=== PATIENT | female | born 1965 | race African-American/Black ===

== ENCOUNTER 2017-11-19 07:52 | Emergency (ER) | payer MEDICARE, MEDICAID ==
[~2017-11-19] VITALS: Ht 157.5 cm; Wt 77.3 kg
[~2017-11-19 07:52] MED LIST: NYQUIL
[2017-11-19] MEDS ORDERED: IBUPROFEN 600 MG TABLET PO ONE (08:45)
[2017-11-19 08:57] LABS: BASOPHILS % (AUTO) 0.5 % (0.0-2.0); EOSINOPHILS % (AUTO) 1.4 % (1.0-6.0); HEMATOCRIT 38.9 % (36-46); HEMOGLOBIN 13.4 g/dL (12.0-16.0); LYMPHOCYTES # (AUTO) 1.1 K/uL (1.0-4.8); MEAN CORPUSCULAR HEMOGLOBIN 31.6 pg (26.0-34.0); MEAN CORPUSCULAR HGB CONC 34.4 G/dL (31.0-37.0); MEAN CORPUSCULAR VOLUME 92 fL (80-100); MONOCYTES # (AUTO) 0.3 K/uL (0.1-1.0); MONOCYTES % (AUTO) 8.1 % (2.0-9.0); NEUTROPHILS # (AUTO) 2.6 K/uL (1.8-7.7); PLATELET COUNT (AUTO) 220 K/uL (150-450); RED BLOOD CELL COUNT(AUTO) 4.24 MIL/uL (4.00-5.20); RED CELL DISTRIBUTION WIDTH 13.4 % (11.5-14.5)
[2017-11-19 09:07] LABS: ANION GAP 4 mmol/L (8-16); CALCIUM, TOTAL 8.6 mg/dL (8.8-10.5); CARBON DIOXIDE 32 mmol/L (22-29); CHLORIDE 104 mmol/L (98-107); CREATININE 0.75 mg/dL (0.60-1.30); GLOMERULAR FILTR. RATE CALC > 60 mL/min (>60); GLUCOSE,RANDOM 86 mg/dL (70-110); POTASSIUM 3.5 mmol/L (3.5-5.1); SODIUM SERUM 140 mmol/L (136-145); UREA NITROGEN, BLOOD 6 mg/dL (7-18)
[2017-11-19 10:05] LABS: ERYTHROCYTE SEDIMENTATION RATE 20 MM/HR (0-20)
[2017-11-19 10:09] VITALS: BP 131/70
== END 2017-11-19 11:00 | disposition home or self-care (01) ==
LOC: EMS 07:53
DX: M25.541 Pain in joints of right hand (principal)
CPT/HCPCS: 29125; 36415; 73140; 80048; 85025; 85651; 96372; 99285; J0690

== ENCOUNTER 2020-09-13 08:50 | Emergency (ER) | payer MEDICAID ==
[~2020-09-13] VITALS: Ht 160 cm; Wt 68.2 kg
[2020-09-13] MEDS ORDERED: SODIUM CHLORIDE 0.9% 1,000 ML IV ONE (10:00)
[2020-09-13] MEDS ORDERED: ONDANSETRON HCL 4 MG/2 ML VIAL IVP ONE (10:00)
[2020-09-13] MEDS ORDERED: KETOROLAC TROMETHAMINE 30 MG/ML VIAL IVP ONE (10:00)
[2020-09-13 10:05] LABS: BASOPHILS % (AUTO) 0.7 % (0.0-2.0); HEMOGLOBIN 12.7 g/dL (12.0-16.0); LYMPHOCYTES # (AUTO) 1.1 K/uL (1.0-4.8); LYMPHOCYTES % (AUTO) 35.1 % (22.0-44.0); MEAN CORPUSCULAR HEMOGLOBIN 29.6 pg (26.0-34.0); MEAN CORPUSCULAR HGB CONC 31.7 G/dL (31.0-37.0); MEAN CORPUSCULAR VOLUME 93 fL (80-100); MONOCYTES # (AUTO) 0.3 K/uL (0.1-1.0); MONOCYTES % (AUTO) 9.4 % (2.0-9.0); NEUTROPHILS # (AUTO) 1.6 K/uL (1.8-7.7); NEUTROPHILS % (AUTO) 53.8 % (40.0-70.0); PLATELET COUNT (AUTO) 206 K/uL (150-450); RED BLOOD CELL COUNT(AUTO) 4.28 MIL/uL (4.00-5.20); RED CELL DISTRIBUTION WIDTH 14.5 % (11.5-14.5)
[2020-09-13 10:14] LABS: ANION GAP 10 mmol/L (8-16); CALCIUM, TOTAL 8.7 mg/dL (8.8-10.5); CARBON DIOXIDE 24 mmol/L (22-29); CHLORIDE 106 mmol/L (98-107); CREATININE 0.65 mg/dL (0.60-1.30); GLOMERULAR FILTR. RATE CALC > 60 mL/min (>60); GLUCOSE,RANDOM 59 mg/dL (70-110); POTASSIUM 4.2 mmol/L (3.5-5.1); SODIUM SERUM 140 mmol/L (136-145); UREA NITROGEN, BLOOD 12 mg/dL (7-18)
[2020-09-13 10:20] LABS: ALANINE AMINOTRANSFERASE 13 U/L (12-78); ALBUMIN 3.4 g/dL (3.4-5.0); ALKALINE PHOSPHATASE 64 U/L (46-116); ASPARTATE AMINOTRANSFERASE 14 U/L (15-37); BILIRUBIN,TOTAL 0.2 mg/dL (0.1-1.0); LIPASE 75 U/L (73-393); TOTAL PROTEIN, SERUM 7.3 g/dL (6.4-8.2)
[2020-09-13 10:30] VITALS: BP 110/68
== END 2020-09-13 11:53 | disposition home or self-care (01) ==
LOC: EMS 08:50
DX: K59.00 Constipation, unspecified (principal); F31.9 Bipolar disorder, unspecified
CPT/HCPCS: 36415; 74176; 80053; 81002; 83690; 85025; 96361; 96374; 96375; 99284; J1885; J2405; J7030

== ENCOUNTER 2024-02-14 13:58 | Emergency (ER) | payer MEDICAID ==
[~2024-02-14] VITALS: Ht 157.5 cm; Wt 75.0 kg
[2024-02-14] MEDS ORDERED: SEMA0.253 SQ (14:05)
[2024-02-14 14:08] VITALS: TEMP 98.7
[2024-02-14] MEDS: LIDOCAINE 5% TRANSDERMAL PATCH TD ONE (16:02)
[2024-02-14] MEDS: KETOROLAC TROMETHAMINE 30 MG/ML VIAL IM ONE (16:02)
[2024-02-14 17:10] VITALS: BP 126/73; PULSE 64; RESP 14; O2SAT 100
[2024-02-14] MEDS ORDERED: BACL10TA PO (17:20)
[2024-02-14] MEDS ORDERED: ACET-3385 PO (17:21)
== END 2024-02-14 17:43 | disposition home or self-care (01) ==
LOC: EMS 13:58
DX: G89.29 Other chronic pain (principal); M54.50 Low back pain, unspecified; F31.9 Bipolar disorder, unspecified; Z90.710 Acquired absence of both cervix and uterus
CPT/HCPCS: 99283; 72100; 96372; J1885